=== PATIENT | male | born 1930 | race Caucasian/White ===

== ENCOUNTER 2016-08-07 09:33 | Day surgery (SDC) | payer MEDICARE ==
[2016-08-07] MEDS ORDERED: KETOROLAC 0.45% OPHTH DROPS OPTH ONE (09:50)
[2016-08-07] MEDS ORDERED: CYCLOPENTOLATE 1% OPHTH DROPS 2 ML OPTH ONE (09:50)
[2016-08-07] MEDS ORDERED: TROPICAMIDE 1% OPHTH 2 ML DROPS OPTH ONE (09:50)
[2016-08-07] MEDS ORDERED: LACTATED RINGERS 500 ML IV ONE (10:03)
[2016-08-07] MEDS ORDERED: MIDAZOLAM 2 MG/2 ML VIAL IVP ONE (10:40)
[2016-08-07] MEDS ORDERED: PROPARACAINE 0.5% OPHTH DROPS 15 ML OPTH ONE (11:00)
[2016-08-07] MEDS ORDERED: EPINEPHrine 1 MG/ML AMP IO ONE (11:00)
[2016-08-07] MEDS ORDERED: CHONDR SULF/HYALURONATE SYRINGE IO ONE (11:00)
[2016-08-07] MEDS ORDERED: TETRACAINE OPHTH DROPS 2 ML OPTH ONE (11:00)
[2016-08-07] MEDS ORDERED: BRIMONIDINE 0.2% OPHTH DROPS 5 ML OPTH ONE (11:00)
[2016-08-07] MEDS ORDERED: BSS/LIDOCAINE/EPINEPHRINE 1 ML SYRINGE IO ONE (11:00)
[2016-08-07] MEDS ORDERED: levoFLOXacin 0.5% OPHTH DROPS 5 ML OPTH ONE (11:00)
== END 2016-08-07 09:34 | disposition home or self-care (01) ==
PROC: 08RJ3JZ Replacement of Right Lens with Synthetic Substitute, Percutaneous Approach (ICD-10-PCS; principal; 2016-08-07 10:35)
DX: H25.11 Age-related nuclear cataract, right eye (principal); I25.10 Atherosclerotic heart disease of native coronary artery without angina pectoris; Z95.5 Presence of coronary angioplasty implant and graft; I10 Essential (primary) hypertension
CPT/HCPCS: 66984; V2632